=== PATIENT | female | born 1985 | race Hispanic/Latino ===

== ENCOUNTER 2017-08-06 16:38 | Outpatient (CLI) | payer BC ==
--- NOTE | 2017-08-06 18:10 | RAD ---
PA AND LATERAL CHEST: History: Cough since May. Recent emesis with blood. FINDINGS: The lungs are well aerated. No evidence of active intrathoracic disease seen. No evidence of effusion s, pneumonia, or pneumothorax seen. IMPRESSION: Unremarkable two views chest. POS: [facility]
== END 2017-08-06 16:39 | disposition home or self-care (01) ==
LOC: SCSRAD 16:38
PROVIDERS: ATTEND Family Medicine
DX: R05 Cough (principal)
CPT/HCPCS: 71020